=== PATIENT | female | born 1990 | race Caucasian/White ===

== ENCOUNTER 2024-09-06 22:51 | Emergency (ER) | payer OTHER, SELFPAY ==
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
[2024-09-06 22:54] VITALS: BP 125/86; PULSE 73; RESP 18; TEMP 36.7; O2SAT 98; BMI 36.0
--- OUTSIDE RECORDS SUMMARY | 2024-09-06 23:20 | XMS_ITS | Clinical Summary ---
Author Organization [facility] [place] & [facility] lin Address [address] [place] [address] Care Team Providers Care Director Of Materials Name Role Phone No, Pcp ELECTRIC MOTOR FITTER Primary Care Provider Unavailabl e Social History Tobacco Use Types Packs/Day Years Used Date Smoking Tobacco: Never Assessed Comments Unknown Sex and Gender Information Value Date Recorded Sex Assigned at Not on file Legal Sex Female 9:35 AM EST Gender Identity Not on file Sexual Orientation Not on file Plan of Treatment Health Maintenance Due Date Last Done Comments Depression: Screening Annual ly using PHQ-2/9 in Adults 18 yrs or above (or HM Modifier)([facility]) 1989 Hepatitis C Virus Infection in Adolescents and Adults: Screening (or Modifier) ([facility]) 2007 [facility] Screening Reminder: Baylee ruma for all adults ([facility]) 2007 Tobacco Smoking Cessation: i n Adults excluding Women: Behavioral and Pharmacotherapy Interventions ([facility]) 2007 DTaP/Tdap/Td Vaccines ([facility]) (1 - Tdap) 2008 Lipid Screening: Once for Wo men aged 20 to 45 yrs ([facility]) 2009 Cervical Cancer Screenin 1-65 yrs of age (or Modifier) 2010 Cervical Cancer Screening: P ap every 3 yrs pts age 21-65 2010 Cervical Cancer: Pap Screeni ng with Modifier timing ([facility]) 2010 Cervical Cancer: hrHPV alone or with cotesting Pap for Pts 30-65yrs screening every 5yrs ([facility]) 2010 COVID-19 Vaccine Screening: Initial Series and Booster Status ([facility]) (2023-25 season) 2023 Flu Vaccination: Yearly for ages 18mos through 64 years (or Modifier)([facility]) 11/23/2024 Zoster/Shingles Vaccine Seri es Screening: Adults aged 18+ yrs (or HM Modifiers)([facility]) (1 of 2) 2039 Pneumococcal Vaccination Scr eening: Pts 0-19 & 19-49 yrs of age ([facility]) Aged Out No longer eligible based on patient's age to complete this topic Medical Devices Not on file Insurance [facility] Care Teams Director Of Materials Relationship Specialty Start Date End Date No, Pcp, ELECTRIC MOTOR FITTER N/A Do not use PCP - General Family Medicine 06/13/20
--- OUTSIDE RECORDS SUMMARY | 2024-09-06 23:20 | XMS_ITS | Clinical Summary ---
Author Organization [facility] Address [address] [place] [address] Care Team Providers Care Team Sports Sales Associate Name Role Phone Bonnie Deng Primary Care Provider +1- [phone] Allergies No known active allergies Medications No known medications Social History Tobacco Use Types Packs/Day Years Used Date Smoking Tobacco: Never Assessed Comments No Sex and Gender Information Value Date Recorded Sex Assigned at Not on file Legal Sex Female 1:17 AM EDT Gender Identity Not on file Sexual Orientation Not on file Last Filed Vital Signs Vital Sign Reading Time Taken Comments Blood Pressure 115/74 12/27/2009 12:02 PM EDT Pulse 71 12/27/2009 12:02 PM EDT Temperature 36.6 ??C (97.9 ??F) 12/27/2009 12:02 PM E DT Respiratory Rate - - Oxygen Saturation - - Inhaled Oxygen Concentration - - Weight - - Height - - Body Mass Index - - Plan of Treatment Health Maintenance Due Date Last Done Comments Hepatitis C Screening 1989 Pap Smear 2005 DTaP/Tdap/Td (1 - Tdap) 2007 Hep B (1 of 3 - 19+ 3-dose series) 2008 COVID-19 Vaccine (2023-2 5 season) 2023 Influenza (#1) 2023 Zoster (Shingrix) (1 of 2) 2039 HPV Vaccine Aged Out No longer eligi ble based on patient's age to complete this topic Hep A Aged Out No longer eligi ble based on patient's age to complete this topic Hib Aged Out No longer eligi ble based on patient's age to complete this topic Meningococcal ACWY Aged Out No longer eligible based on patient's age to complete this topic Pneumococcal Aged Out No longer eligi ble based on patient's age to complete this topic Insurance FFS [facility] HMO/POS Care Teams Team Sports Sales Associate Relationship Specialty Start Date End Date Bonnie Deng [address] [place] [id number] PCP - General 12/31/09
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
[2024-09-07 00:50] VITALS: BP 125/86; PULSE 73; RESP 18; TEMP 36.6; O2SAT 98
== END 2024-09-07 00:51 | disposition home or self-care (01) ==
PROVIDERS: Emergency Provider Emergency Medicine
DX: S62.307A Unspecified fracture of fifth metacarpal bone, left hand, initial encounter for closed fracture (principal); V49.40XA Driver injured in collision with unspecified motor vehicles in traffic accident, initial encounter; Y93.9 Activity, unspecified; Y92.9 Unspecified place or not applicable; Y99.9 Unspecified external cause status; M79.642 Pain in left hand
CPT/HCPCS: 73130; 99282; 99284

== ENCOUNTER → 2024-09-06 23:00 | Outpatient (BNV) | payer OTHER, SELFPAY | PROVIDERS: Emergency Provider Emergency Medicine; Visit Provider Radiology Diagnostic Radiology | DX: S62.398A Other fracture of other metacarpal bone, initial encounter for closed fracture (principal) | CPT/HCPCS: 73130 ==

== ENCOUNTER 2024-09-10 07:43 | Outpatient (REF) | payer OTHER, SELFPAY ==
--- NOTE | ~2024-09-10 | XR_ITS ---
EXAMINATION: XR HAND, LEFT CLINICAL INFORMATION: M79.642 - Pain in left hand COMPARISON: 09/06/2024. TECHNIQUE: PA, lateral, and oblique views of the left hand. FINDINGS: Acute nondisplaced comminuted distal fifth metacarpal fracture. (Boxer's fracture). No additional acute fractures. There is AVN of the lunate with subchondral collapse and cystic changes. There is a subchondral cyst in the medial articular surface of the radius. Radiocarpal joint narrowing. Mild soft tissue swelling overlying the hyperthenar eminence. Soft tissues otherwise normal. XR/XR hand LT min 3V IMPRESSION: 1. No significant change in the nondisplaced comminuted fifth metacarpal fracture. 2. AVN of the lunate. Electronically signed by: Isidro Goff MD 09/10/2024 01:37 PM EDT
--- OUTSIDE RECORDS SUMMARY | 2024-09-10 07:46 | XMS_ITS | Clinical Summary ---
Author Organization [facility] [employer] & [facility] lin Address [address] [place] [address] Care Team Providers Care Cellular Phone Repairer Name Role Phone No, Pcp SET RIDER Primary Care Provider Unavailabl e Social History [...] Adults 18 yrs or above (or HM Modifier)([facility]) 1989 Hepatitis C Virus Infection in Adolescents and Adults: Screening (or Modifier) ([facility]) 2007 [facility] Screening Reminder: Baylee ruma for all adults ([facility]) 2007 Tobacco Smoking Cessation: i n Adults excluding Women: Behavioral and Pharmacotherapy Interventions ([facility]) 2007 DTaP/Tdap/Td Vaccines ([facility]) (1 - Tdap) 2008 Lipid Screening: Once for Wo men aged 20 to 45 yrs ([facility]) 2009 Cervical Cancer Screenin 1-65 yrs of age (or Modifier) 2010 Cervical Cancer Screening: P ap every 3 yrs pts age 21-65 2010 Cervical Cancer: Pap Screeni ng with Modifier timing ([facility]) 2010 Cervical Cancer: hrHPV alone or with cotesting Pap for Pts 30-65yrs screening every 5yrs ([facility]) 2010 COVID-19 Vaccine Screening: Initial Series and Booster Status ([facility]) (2023-25 season) 2023 Flu Vaccination: Yearly for ages 18mos through 64 years (or Modifier)([facility]) 11/23/2024 Zoster/Shingles Vaccine Seri es Screening: Adults aged 18+ yrs (or HM Modifiers)([facility]) (1 of 2) 2039 Pneumococcal Vaccination Scr eening: Pts 0-19 & 19-49 yrs of age ([facility]) Aged Out No longer eligible based on patient's age to complete this topic Medical Devices Not on file Insurance [facility] Care Teams Cellular Phone Repairer Relationship Specialty Start Date End Date No, Pcp, SET RIDER N/A Do not use PCP - General Family Medicine 06/13/20
--- OUTSIDE RECORDS SUMMARY | 2024-09-10 07:46 | XMS_ITS | Clinical Summary ---
Author Organization [facility] Address [address] [place] [address] Care Team Providers Care Corncob Pipe Supervisor Name Role Phone Bonnie Deng Primary Care Provider +1- [phone] Allergies No known active allergies Medications No [...] age to complete this topic Insurance FFS [facility] HMO/POS Care Teams Corncob Pipe Supervisor Relationship Specialty Start Date End Date Bonnie Deng [address] [place] [phone] PCP - General 12/31/09
== END 2024-09-10 07:44 | disposition home or self-care (01) ==
LOC: HO.HOSX 07:43
DX: M79.642 Pain in left hand (principal); S62.307D Unspecified fracture of fifth metacarpal bone, left hand, subsequent encounter for fracture with routine healing; M87.242 Osteonecrosis due to previous trauma, left hand
CPT/HCPCS: 73130

== ENCOUNTER 2024-09-10 13:14 | Outpatient (AMB) | payer OTHER, SELFPAY ==
--- OUTSIDE RECORDS SUMMARY | 2024-09-10 13:19 | XMS_ITS | Clinical Summary ---
Author Organization [facility] [employer] [facility] lin Address [address] [place] [address] Care Team Providers Care Pin Drafter Name Role Phone No, Pcp ORTHODONTIST Primary Care Provider Unavailabl e Social History [...] Adults 18 yrs or above (or HM Modifier)([facility]) 1989 Hepatitis C Virus Infection in Adolescents and Adults: Screening (or Modifier) ([facility]) 2007 [facility] Screening Reminder: Baylee ruma for all adults ([facility]) 2007 Tobacco Smoking Cessation: i n Adults excluding Women: Behavioral and Pharmacotherapy Interventions ([facility]) 2007 DTaP/Tdap/Td Vaccines ([facility]) (1 - Tdap) 2008 Lipid Screening: Once for Wo men aged 20 to 45 yrs ([facility]) 2009 Cervical Cancer Screenin 1-65 yrs of age (or Modifier) 2010 Cervical Cancer Screening: P ap every 3 yrs pts age 21-65 2010 Cervical Cancer: Pap Screeni ng with Modifier timing ([facility]) 2010 Cervical Cancer: hrHPV alone or with cotesting Pap for Pts 30-65yrs screening every 5yrs ([facility]) 2010 COVID-19 Vaccine Screening: Initial Series and Booster Status ([facility]) (2023-25 season) 2023 Flu Vaccination: Yearly for ages 18mos through 64 years (or Modifier)([facility]) 11/23/2024 Zoster/Shingles Vaccine Seri es Screening: Adults aged 18+ yrs (or HM Modifiers)([facility]) (1 of 2) 2039 Pneumococcal Vaccination Scr eening: Pts 0-19 & 19-49 yrs of age ([facility]) Aged Out No longer eligible based on patient's age to complete this topic Medical Devices Not on file Insurance [facility] Care Teams Pin Drafter Relationship Specialty Start Date End Date No, Pcp, ORTHODONTIST N/A Do not use PCP - General Family Medicine 06/13/20
--- OUTSIDE RECORDS SUMMARY | 2024-09-10 13:19 | XMS_ITS | Clinical Summary ---
Author Organization [facility] Address [address] [place] [address] Care Team Providers Care Merchandise Adjustment Clerk Name Role Phone Bonnie Deng Primary Care Provider +1- [phone] Allergies No known active allergies Medications No [...] age to complete this topic Insurance FFS [facility] HMO/POS Care Teams Merchandise Adjustment Clerk Relationship Specialty Start Date End Date Bonnie Deng [address] [place] [id number] PCP - General 12/31/09
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
[2024-09-10 13:29] VITALS: BMI 36.0
== END 2024-09-10 14:12 | disposition home or self-care (01) ==
LOC: HO.HOS 13:15
DX: S62.307A Unspecified fracture of fifth metacarpal bone, left hand, initial encounter for closed fracture (principal)
CPT/HCPCS: 99203

== ENCOUNTER → 2024-09-10 13:17 | Outpatient (BNV) | payer SELFPAY | PROVIDERS: Visit Provider Radiology Diagnostic Radiology | DX: M87.038 Idiopathic aseptic necrosis of left carpus (principal); S62.307A Unspecified fracture of fifth metacarpal bone, left hand, initial encounter for closed fracture | CPT/HCPCS: 73130 ==

== ENCOUNTER 2024-09-18 09:41 | Outpatient (REF) | payer OTHER, SELFPAY ==
--- NOTE | ~2024-09-18 | XR_ITS ---
EXAMINATION: XR HAND 3 OR MORE VIEWS LEFT HISTORY: M79.642 - Pain in left hand COMPARISON: Comparison is made with the prior examination dated 09/10/2024. FINDINGS: Three views of the left hand are submitted. Osseous mineralization is normal. Again seen is a comminuted fracture of the 5th metacarpal neck. There is slightly greater displacement on the current study. The joint spaces are preserved. 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 A cyst is again noted in the distal radius. The soft tissues are unremarkable. XR/XR hand LT min 3V IMPRESSION: 1. Comminuted fracture of the 5th metacarpal neck with slightly greater displacement than on the prior study. 2. AVN of the lunate. Electronically signed by: Manuel Cifuentes MD 09/18/2024 02:38 PM EDT
--- OUTSIDE RECORDS SUMMARY | 2024-09-19 10:24 | XMS_ITS | Clinical Summary ---
Author Organization [facility] Address [address] [place] [address] Care Team Providers Care Recruiting Consultant Name Role Phone Bonnie Deng Primary Care Provider +1- [phone] Allergies No known active allergies Medications No [...] complete this topic Insurance FFS [facility] HMO/POS Care Teams Recruiting Consultant Relationship Specialty Start Date End Date Bonnie Deng [address] [place] [id number] PCP - General 12/31/09
== END 2024-09-18 09:42 | disposition home or self-care (01) ==
LOC: HO.HOSX 09:41
DX: M79.642 Pain in left hand (principal)
CPT/HCPCS: 73130

== ENCOUNTER 2024-09-18 12:59 | Outpatient (AMB) | payer OTHER, SELFPAY ==
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
--- OUTSIDE RECORDS SUMMARY | 2024-09-18 13:03 | XMS_ITS | Clinical Summary ---
Author Organization [facility] Address [address] [place] [address] Care Team Providers Care Cytopathologist Name Role Phone Bonnie Deng Primary Care Provider +1- [phone] Allergies No known active allergies Medications No [...] age to complete this topic Insurance FFS [facility] HMO/POS Care Teams Cytopathologist Relationship Specialty Start Date End Date Bonnie Deng [address] [place] [id number] PCP - General 12/31/09
[2024-09-18 13:08] VITALS: BMI 36.0
== END 2024-09-18 14:01 | disposition home or self-care (01) ==
LOC: HO.HOS 13:00
DX: S62.307A Unspecified fracture of fifth metacarpal bone, left hand, initial encounter for closed fracture (principal)
CPT/HCPCS: 99214

== ENCOUNTER → 2024-09-18 13:01 | Outpatient (BNV) | payer SELFPAY | PROVIDERS: Visit Provider Radiology Diagnostic Radiology | DX: M79.642 Pain in left hand (principal); S62.337A Displaced fracture of neck of fifth metacarpal bone, left hand, initial encounter for closed fracture | CPT/HCPCS: 73130 ==

== ENCOUNTER 2024-09-20 14:38 | Day surgery (SDC) | payer OTHER, SELFPAY ==
--- NOTE | 2024-09-18 14:55 | HO.ANESPROP2 ---
HPI - Anesthesia Eval Consult details Narrative: 34yo F for Left 5th CRPP vs ORIF Metacarpal PMFSH Active Problems Active Problems: All Active Problems Fracture of fifth metacarpal bone of left hand (Acute ~09/06/24) Past Medical History Medical History (Updated 09/18/24 @ 13:09 by MINNA Vasquez) Fracture of fifth metacarpal bone of left hand (~09/06/24) Social History Social History Current occupational status: employed Current occupation: DSW/right handed Meds Allergies Allergy/AdvReac Type Severity Reaction Status Date / Time No Known Allergies Allergy Verified 09/18/24 13:08 Home Medications ?Medication ?Instructions ?Recorded ?Confirmed ?Last Taken ?Type alprazolam 0.5 mg tablet mg PO 09/10/24 Unknown History cariprazine 4.5 mg capsule 4.5 mg PO DAILY 09/10/24 Unknown History (Vraylar) dextroamphetamine-amphetamine ER 1 cap PO DAILY 09/10/24 Unknown History 30 mg 24hr capsule,extend release trazodone 100 mg tablet 100 mg PO BEDTIME 09/10/24 Unknown History ulipristal 30 mg tablet (Nida) 30 mg PO ONCE 09/10/24 Unknown History Assessment and Plan Assessment Anesthesia Assessment: Chart Reviewed
--- NOTE | ~2024-09-20 | FL_ITS ---
EXAMINATION: FL GUIDANCE ONLY HISTORY: 5th CRPP vs ORIF metacarpal left COMPARISON: Correlation is made with plain films of the left hand dated 09/18/2024. TECHNIQUE: Fluoroscopy time: 47.41 seconds. Cumulative Dose: 1.5034 mGy. DAP: 0.0909 mGym2 Images: 6. FINDINGS: Fluoroscopic spot films of the left hand demonstrate internal fixation of the previously seen fracture of the 5th metacarpal with 2 K wires. FL/FL guidance in OR IMPRESSION: Fluoroscopy during procedure. Please see procedure report for additional information. Electronically signed by: Manuel Cifuentes MD 09/21/2024 07:06 AM EDT
--- NOTE | 2024-09-20 12:41 | P.OP_ITS ---
Operative Note Operative Note Date of Service: 09/20/24 Narrative: Operative Note Narrative: Preop diagnosis: 1. Left 5th Metacarpal shaft fracture Postop diagnosis: Same Procedure: 1. Left 5th Metacarpal fracture closed reduction percutaneous pinning 2. Ulnar nerve block Surgeon: Katerine Dickinson MD Livestock Buyer: Donnie VAZQUEZ Anesthesia: General Anesthesia Findings: Metacarpal fracture Implants: 0.054 K-wires x2 Tourniquet time: None EBL: Minimal Specimen: None Drains: None Complications: None Disposition: Brought to the recovery room in stable condition Plan: Follow-up in 10-14 days for a wound check, postop radiographs and for placement in a short-arm cast or splint Anticipate K-wire removal in 4 weeks based on interval bony healing Educate the patient that full fracture healing anticipated in approximately 8-12 weeks. Indications: The patient is 34 years old with a left 5th metacarpal shaft fracture with displacement . The risks and benefits of operative treatment, including but not limited to risk of damage to blood vessels, nerves, tendons, infection, recurrence, delayed or nonunion of fracture, persistent pain or numbness, incomplete resolution of preoperative symptoms, or need for further surgery were discussed with the patient and they wished to proceed with surgery. Procedure: Once consent was obtained patient was brought back to the operating suite and placed in the operating table in a supine position. . Perioperative antibiotics and general anesthesia was administered by the anesthesia team. A tourniquet was applied to the proximal aspect of the left upper extremity and the limb was prepped and draped in a standard surgical fashion. Tourniquet was not inflated during the case. The FluoroScan was used during the case to assist with our fracture reduction and placement of all implants. A closed reduction was performed on the patient's left 5th metacarpal shaft fracture. I placed a single 0.054 K-wire retrograde through the head of the left 5th metacarpal extending proximally across the fracture site to the base of the metacarpal. A 2nd 0.054 K-wire was placed transversely through the neck of the 5th metacarpal extending into the head and neck of the 4th metacarpal. Fracture alignment was assessed for both angular and rotational malalignment. Once satisfied with our fracture reduction and implant placement, the K-wires were bent and cut short and pin caps applied. Final fluoroscopic images were then obtained. The wounds were copiously irrigated with normal saline. An ulnar nerve block was then performed by infiltrating about the ulnar nerve at the wrist with some 1% lidocaine with epinephrine for postop pain control. A Sterile dressing and short volar splint was applied. The patient appears to have tolerated the procedure well and with no complications. All digits were well vascularized at the conclusion of the case.
[2024-09-20 14:49] VITALS: BP 117/78; PULSE 76; RESP 16; TEMP 37; O2SAT 96; BMI 37.6
[2024-09-20 14:56] LABS: UPreg QC Valid YES; Urine Pregnancy NEGATIVE (NEGATIVE)
[2024-09-20] MEDS: Lactated Ringers 1,000 ML 100 ML IVCONT (15:17)
--- NOTE | 2024-09-20 15:36 | PC.NURSE ---
Patient in preop. Dr. Bob and this nurse at bedside. Patient found eating a mint. Mint immediately removed from mouth. Patient states I did not know I couldn't have a mint . This nurse verified with patient that she has had no other candy/gum/mints all day, NPO since midnight. No new orders at this time. No delay in surgery per Dr. Bob.
--- NOTE | 2024-09-20 16:51 | MHC.SHP ---
Pre-Procedural Eval Section A - 24 Hr Update-Section A only Date of Service: 09/20/24 The patient is an INPATIENT: No Changes since office visit: No Cold of Flu in the past 2 weeks, No New Medical Problems, No Changes in Medication and No Patient answered all questions The patient has been examined within 24 hours of the surgical procedure. The History & Physical has been completed within 30 days and I have reviewed it.: Yes Section B - Complete if H&P > 30 days Chief Complaint: Displaced fracture of shaft of fifth metacarpal Allergies: Allergies Allergy/AdvReac Type Severity Reaction Status Date / Time No Known Allergies Allergy Verified 09/20/24 14:46 Plan I have reviewed the history and physical and performed a pertinent physical examination on my patient. No changes have occurred unless specified. Time Spent With Patient Time: Total time managing care of this patient today ____ minutes.
[2024-09-20] MEDS: ceFAZolin Sodium/Dextrose,Iso 2 GM/50 ML PIGGYBACK IV (17:55)
[2024-09-20 18:50] VITALS: BP 129/77; PULSE 89; RESP 16; TEMP 37.4; O2SAT 99
[2024-09-20 18:55] VITALS: BP 137/82; PULSE 94; RESP 16; O2SAT 96
[2024-09-20 19:00] VITALS: BP 107/64; PULSE 81; RESP 16; O2SAT 96
--- NOTE | 2024-09-20 19:01 | HO.POSTANES ---
Post Anesthesia Evaluation Post Anesthesia Evaluation Date of Service: 09/20/24 Vital Signs: Vital Signs Temp Pulse Resp BP Pulse Ox O2 Del Method 09/20/24 18:55 94 16 137/82 96 Room Air 09/20/24 18:50 99.3 F 89 16 129/77 99 Room Air 09/20/24 14:49 98.6 F 76 16 117/78 96 Room Air Anesthesia: General LMA Mental Status: Awake Pain Control: Satisfactory Nausea/Vomiting: None Hydration: Adequate Anesthesia-Related Issues: No Anes. Related Issues
[2024-09-20 19:05] VITALS: BP 121/87; PULSE 89; RESP 16; O2SAT 95
[2024-09-20 19:20] VITALS: BP 109/63; PULSE 84; RESP 18; TEMP 36.7; O2SAT 97
== END 2024-09-20 19:28 | disposition home or self-care (01) ==
PROVIDERS: Nurse Practitioner; Visit Provider Orthopaedic Surgery
PROC: (CPT 26608; principal; 2024-09-20 16:20)
DX: S62.327A Displaced fracture of shaft of fifth metacarpal bone, left hand, initial encounter for closed fracture (principal); V49.9XXA Car occupant (driver) (passenger) injured in unspecified traffic accident, initial encounter; Y93.9 Activity, unspecified; Y92.9 Unspecified place or not applicable; Y99.9 Unspecified external cause status; Z79.899 Other long term (current) drug therapy
CPT/HCPCS: 26608; 81025; J0131; J0690; J1100; J1596; J2003; J2004; J2250; J2405; J2704; J3010

== ENCOUNTER → 2024-09-20 14:38 | Outpatient (BNV) | payer OTHER, SELFPAY | PROVIDERS: Visit Provider Orthopaedic Surgery | DX: S62.327A Displaced fracture of shaft of fifth metacarpal bone, left hand, initial encounter for closed fracture (principal) | CPT/HCPCS: 26608 ==

== ENCOUNTER 2024-10-03 14:46 | Outpatient (AMB) | payer OTHER, SELFPAY ==
--- NOTE | 2024-10-03 15:01 | MHC.OFFVIS ---
Intake Visit Reasons: PO LT 5th CRPP 09/20/24 AR Intake Note: Renée is a 34 year old right hand dominant female who presents today for a post operative visit status post left 5th metacarpal fracture CRPP DOS: 09/20/[address] Katerine Dickinson. Patient mentions having no pain at the moment. Pins look clean, dry and intact. Allergies No Known Allergies Allergy (Verified 10/03/24 15:11) HPI HPI PO LT 5th CRPP 09/20/24 AR: Details: Renée is a 34 year old right hand dominant female who presents today for a post operative visit status post left 5th metacarpal fracture CRPP DOS: 09/20/[address] Katerine Dickinson. Patient mentions having no pain at the moment. Pins look clean, dry and intact. Patient reports that she has kept the splint clean, dry, intact since surgery. No other acute complaints or concerns at this time. Denies numbness or tingling. [facility] Medical History (Updated 09/18/24 @ 13:09 by MINNA Vasquez) Fracture of fifth metacarpal bone of left hand (~09/06/24) Surgical History (Updated 09/20/24 @ 15:35 by Day Coyne RN) H/O adenoidectomy Hx of tonsillectomy H/O total adrenalectomy Social History Are you a primary administrator health care facility to a significant other at home: No Do you presently have visiting nurse or other home services: No Patient Tobacco Use Status: Former Tobacco user Tobacco use type: Cigarette Years Smoked: 10 Current occupational status: employed Current occupation: DSW/right handed Review of Systems Const All systems reviewed & are unremarkable except as noted in HPI and below Physical Exam Extrem Other: Patient is alert, oriented, and in no acute distress. Neuro: Normal sensation of the tips of all digits of the left hand at this time Vascular: Cap refill brisk Pain: No tenderness to palpation about pin sites of left 5th metacarpal No pain with range of motion of other digits of the left hand ROM: Patient is able to make a closed fist and extend thumb, index, middle fingers of the left hand fully and without difficulty Skin: No lacerations or abrasions. General: There is some slight redness noted about the ulnar pin site No redness around incision site of left 5th MCP joint Psych: Appears grossly normal Affect normal Attitude cooperative Results Reviewed Results Reviewed: X-rays obtained in the office today and independently reviewed by me, Donnie Beltran PA-C, demonstrate surgically reduced fracture of the left 5th metacarpal with all orthopedic hardware in place and in satisfactory clinical alignment. Assessment & Plan Assessment & Plan (1) Fracture of fifth metacarpal bone of left hand: Onset Date: ~09/06/24 Code(s): S62.307A - Unspecified fracture of fifth metacarpal bone, left hand, initial encounter for closed fracture Category: Medical Plan 1. Status post CRPP of left 5th metacarpal DOS 09/20/2024 Patient appears to be recovering well postoperatively Patient is educated about the typical recovery course At this time, out of an abundance of caution due to the slight redness around 1 of the pin sites, patient is prescribed a one-week course of Augmentin Patient is also placed into a ulnar gutter cast for better protection of pin sites Patient is educated on proper cast care and precautions Follow-up in 1 week for wound check, we will replace and cast at that time, sooner with any acute concerns. Orders: Orders XR hand LT min 3V 10/03/24 M79.642 - Pain in left hand Medications: New amoxicillin-pot clavulanate 875-125 mg 1 tab PO BID 14 tabs 0RF 7 days Coding Level of Care Code Global (23064) Diagnoses Fracture of fifth metacarpal bone of left hand S62.307A
--- OUTSIDE RECORDS SUMMARY | 2024-10-03 16:59 | XMS_ITS | Clinical Summary ---
Author Organization [facility] Address [address] [place] [address] Care Team Providers Care Director Global Medical Affairs Name Role Phone Bonnie Deng Primary Care Provider +1- [phone] Allergies No known active allergies Medications No [...] COVID-19 Vaccine (2023-2 5 season) 2023 Influenza (Season Ended) 2024 Zoster (Shingrix) (1 of 2) 2039 HPV [...] age to complete this topic Insurance FFS [facility] HMO/POS Care Teams Director Global Medical Affairs Relationship Specialty Start Date End Date Bonnie Deng [address] [place] [id number] PCP - General 12/31/09
== END 2024-10-03 16:46 | disposition home or self-care (01) ==
LOC: HO.HOS 14:47
DX: S62.307A Unspecified fracture of fifth metacarpal bone, left hand, initial encounter for closed fracture (principal)
CPT/HCPCS: 99024

== ENCOUNTER 2024-10-03 14:46 | Outpatient (REF) | payer OTHER, SELFPAY ==
--- NOTE | ~2024-10-03 | XR_ITS ---
EXAMINATION: XR HAND, LEFT CLINICAL INFORMATION: M79.642 - Pain in left hand, follow-up fixed fracture COMPARISON: None available. TECHNIQUE: PA, lateral, and oblique views of the left hand. FINDINGS: K wires traverse an oblique fracture through the distal metadiaphysis of the fifth metacarpal. On the AP view, there is a 1-2 mm step-off of the cortex across the fracture. There is increasing osteopenia along the fracture line. Again seen is mild to moderate collapse and fragmentation of the lunate. Again seen is degenerative cystic change in the radius adjacent to the sigmoid notch. XR/XR hand LT min 3V IMPRESSION: Post fixation of fifth metacarpal fracture with K wires. No evidence of early healing. 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 Electronically signed by: Kevin Dean MD 10/03/2024 06:34 PM EDT
== END 2024-10-03 14:47 | disposition home or self-care (01) ==
LOC: HO.HOSX 14:46
DX: M79.642 Pain in left hand (principal)
CPT/HCPCS: 73130

== ENCOUNTER → 2024-10-03 15:18 | Outpatient (BNV) | payer OTHER, SELFPAY | PROVIDERS: Visit Provider Radiology Diagnostic Radiology | DX: S62.327G Displaced fracture of shaft of fifth metacarpal bone, left hand, subsequent encounter for fracture with delayed healing (principal); M85.89 Other specified disorders of bone density and structure, multiple sites; Z96.698 Presence of other orthopedic joint implants; M48.061 Spinal stenosis, lumbar region without neurogenic claudication | CPT/HCPCS: 73130 ==

== ENCOUNTER 2024-10-09 08:08 | Outpatient (AMB) | payer OTHER, SELFPAY ==
--- NOTE | 2024-10-09 08:16 | MHC.OFFVIS ---
Intake Visit Reasons: PO LT 5th CRPP 09/20/24 AA Intake Note: Renée is a 34 year old right hand dominant female who presents today for a post operative appointment about 3 weeks s/p Left 5th MC CRPP 09/20/24. Cast removed today in clinic. Patient reports that she has continued abx, she did miss a dose but has continued to take as directed. has not finished the course yet. She has some reddness and white located surrounding the pin in the side of the 5th digit. She has no pain, and is doing well overall. no complaints at this time. Allergies No Known Allergies Allergy (Verified 10/03/24 15:11) HPI HPI PO LT 5th CRPP 09/20/24 AA: Details: Renée is a 34 year old right hand dominant female who presents today for a post operative appointment about 3 weeks s/p Left 5th MC CRPP 09/20/24. Cast removed today in clinic. Patient reports that she has continued abx, she did miss a dose but has continued to take as directed. has not finished the course yet. She has some reddness and white located surrounding the pin in the side of the 5th digit. She has no pain, and is doing well overall. no complaints at this time. [facility] Medical History Fracture of fifth metacarpal bone of left hand (~09/06/24) Surgical History H/O adenoidectomy Hx of tonsillectomy H/O total adrenalectomy Social History Are you a primary post anesthesia care unit nurse to a significant other at home: No Do you presently have visiting nurse or other home services: No Patient Tobacco Use Status: Former Tobacco user Tobacco use type: Cigarette Years Smoked: 10 Current occupational status: employed Current occupation: DSW/right handed Review of Systems Const All systems reviewed & are unremarkable except as noted in HPI and below Physical Exam Extrem Other: Patient is alert, oriented, and in no acute distress. Neuro: Normal sensation of the tips of all digits of the left hand at this time Vascular: Cap refill brisk Pain: No tenderness to palpation about pin sites of left 5th metacarpal No pain with range of motion of other digits of the left hand ROM: Patient is able to make a closed fist and extend thumb, index, middle fingers of the left hand fully and without difficulty Skin: No lacerations or abrasions. General: There is some slight redness noted about the ulnar pin site, has darkened and appears to be more consistent with new skin growth then infection at this time No redness around incision site of left 5th MCP joint Psych: Appears grossly normal Affect normal Attitude cooperative Assessment & Plan Assessment & Plan (1) Fracture of fifth metacarpal bone of left hand: Onset Date: ~09/06/24 Code(s): S62.307A - Unspecified fracture of fifth metacarpal bone, left hand, initial encounter for closed fracture Category: Medical Plan 1. Status post CRPP of left 5th metacarpal DOS 09/20/2024 Patient appears to be recovering well postoperatively Patient is educated about the typical recovery course At this time, out of an abundance of caution due to the slight redness around 1 of the pin sites, patient is prescribed a one-week course of Augmentin Patient is also placed into a ulnar gutter cast for better protection of pin sites Patient is educated on proper cast care and precautions Follow-up in 1 week for wound check, anticipate cast and pin removal t at that time, sooner with any acute concerns. Medications: Refilled amoxicillin-pot clavulanate 875-125 mg 1 tab PO BID 7 days 14 tabs 0RF Coding Level of Care Code Global (45778) Diagnoses Fracture of fifth metacarpal bone of left hand S62.307A
== END 2024-10-09 08:39 | disposition home or self-care (01) ==
LOC: HO.HOS 08:08
DX: S62.307A Unspecified fracture of fifth metacarpal bone, left hand, initial encounter for closed fracture (principal)
CPT/HCPCS: 99024

== ENCOUNTER 2024-10-16 08:41 | Outpatient (REF) | payer OTHER, SELFPAY ==
--- NOTE | ~2024-10-16 | XR_ITS ---
CLINICAL HISTORY: M79.642 - Pain in left hand --- Additional Notes or Special Instructions: Attn fifth 3 view left hand Comparison: None provided Findings: Postsurgical changes related to nail fixation of the 5th metacarpal fracture which maintains gross anatomic alignment. No significant arthritic change. No erosions. No radiopaque foreign body. IMPRESSION: Postsurgical changes related to nail fixation of the 5th metacarpal fracture which maintains gross anatomic alignment. This document has been electronically signed by: Valerie Davison MD on 10/16/2024 23:02:50
--- OUTSIDE RECORDS SUMMARY | 2024-10-17 09:06 | XMS_ITS | Clinical Summary ---
Author Organization [facility] Address [address] [place] [address] Care Team Providers Care Loft Worker Pile Driving Name Role Phone Bonnie Deng Primary Care Provider +1- [phone] Allergies No known active allergies Medications No [...] age to complete this topic Insurance FFS [facility] HMO/POS Care Teams Loft Worker Pile Driving Relationship Specialty Start Date End Date Bonnie Deng [address] [place] [id number] PCP - General 12/31/09
== END 2024-10-16 08:42 | disposition home or self-care (01) ==
LOC: HO.HOSX 08:41
DX: M79.642 Pain in left hand (principal)
CPT/HCPCS: 73130

== ENCOUNTER 2024-10-16 10:18 | Outpatient (AMB) | payer OTHER, SELFPAY ==
--- NOTE | 2024-10-16 10:36 | MHC.OFFVIS ---
Intake Visit Reasons: PO LT 5th CRPP 09/20/24 AA-w/xrays Intake Note: Renée is a 34 year old right hand dominant female who presents today for a post operative visit and wound check status post left 5th metacarpal fracture CRPP DOS: 09/20/[address] Katerine Dickinson. Patient reports she is doing well, states no complaints of pain or discomfort. Allergies No Known Allergies Allergy (Verified 10/16/24 10:36) HPI HPI PO LT 5th CRPP 09/20/24 AA-w/xrays: Details: Renée is a 34 year old right hand dominant female who presents today for a post operative appointment about 3 weeks s/p Left 5th MC CRPP 09/20/24. Cast removed today in clinic. Patient reports that she has continued abx. She has some reddness and white located surrounding the pin in the side of the 5th digit. She has no pain, and is doing well overall. no complaints at this time. [facility] Medical History Fracture of fifth metacarpal bone of left hand (~09/06/24) Surgical History H/O adenoidectomy Hx of tonsillectomy H/O total adrenalectomy Social History Are you a primary skin care technician to a significant other at home: No Do you presently have visiting nurse or other home services: No Patient Tobacco Use Status: Former Tobacco user Tobacco use type: Cigarette Years Smoked: 10 Current occupational status: employed Current occupation: DSW/right handed Review of Systems Const All systems reviewed & are unremarkable except as noted in HPI and below Physical Exam Extrem Other: Patient is alert, oriented, and in no acute distress. Neuro: Normal sensation of the tips of all digits of the left hand at this time Vascular: Cap refill brisk Pain: No tenderness to palpation about pin sites of left 5th metacarpal No pain with range of motion of other digits of the left hand ROM: Patient is able to make a closed fist and extend thumb, index, middle fingers of the left hand fully and without difficulty Skin: No lacerations or abrasions. General: There is some slight redness noted about the ulnar pin site, has darkened and appears to be more consistent with new skin growth then infection at this time No redness around incision site of left 5th MCP joint Psych: Appears grossly normal Affect normal Attitude cooperative Results Reviewed Results Reviewed: X-rays obtained in the office today and independently reviewed by me, Donnie Beltran PA-C, demonstrate surgically reduced fracture of the left 5th metacarpal with all orthopedic hardware in place and in satisfactory clinical alignment with evidence of early interval bony healing. Assessment & Plan Assessment & Plan (1) Fracture of fifth metacarpal bone of left hand: Onset Date: ~09/06/24 Code(s): S62.307A - Unspecified fracture of fifth metacarpal bone, left hand, initial encounter for closed fracture Category: Medical Plan 1. Status post CRPP of left 5th metacarpal DOS 09/20/2024 Patient appears to be recovering well postoperatively Patient is educated about the typical recovery course Pins pulled in the office today without issue Patient is educated on proper pin site care and precautions Patient is provided with a Velcro wrist splint to wear with daytime activities and olu tape to wear while awake OT order to begin gentle range of motion of the left hand, no strengthening Follow-up in 1 month for reassessment, sooner with any acute concerns. Orders: Orders XR hand LT min 3V Today M79.642 - Pain in left hand OT Evaluation and Treatment Today S62.307A - Unspecified fracture of fifth metacarpal bone, left hand, initial encounter for closed fracture Coding Level of Care Code Global (39825) Diagnoses Fracture of fifth metacarpal bone of left hand S62.307A
--- OUTSIDE RECORDS SUMMARY | 2024-10-16 11:26 | XMS_ITS | Clinical Summary ---
Author Organization [facility] Address [address] [place] [address] Care Team Providers Care Tool Analyst Name Role Phone Bonnie Deng Primary Care Provider +1- [phone] Allergies No known active allergies Medications No [...] 71 12/27/2009 12:02 PM EDT Temperature 36.6 C (97.9 F) 12/27/2009 12:02 PM EDT Respiratory Rate - - Oxygen Saturation - [...] to complete this topic Insurance FFS [facility] HMO/POS Care Teams Tool Analyst Relationship Specialty Start Date End Date Bonnie Deng [address] [place] [id number] PCP - General 12/31/09
== END 2024-10-16 11:37 | disposition home or self-care (01) ==
LOC: HO.HOS 10:19
DX: S62.307A Unspecified fracture of fifth metacarpal bone, left hand, initial encounter for closed fracture (principal)
CPT/HCPCS: 99024

== ENCOUNTER → 2024-10-16 10:22 | Outpatient (BNV) | payer OTHER, SELFPAY | PROVIDERS: Visit Provider Student in an Organized Health Care Education/Training Program | DX: S62.307D Unspecified fracture of fifth metacarpal bone, left hand, subsequent encounter for fracture with routine healing (principal) | CPT/HCPCS: 73130 ==

== ENCOUNTER 2024-11-14 13:17 | Outpatient (REF) | payer OTHER, SELFPAY ==
--- NOTE | ~2024-11-14 | XR_ITS ---
EXAMINATION: XR HAND 3 OR MORE VIEWS LEFT HISTORY: M79.642 - Pain in left hand COMPARISON: Comparison is made with the prior examination dated 10/16/2024. FINDINGS: Three views of the left hand are submitted. There is a cyst in the distal radius. The previously seen K wire is at the site of an oblique fracture of the 5th metacarpal have been removed. The fracture line remains visible. Again seen is collapse and fragmentation of the lunate consistent with old avascular necrosis. The soft tissues are unremarkable. XR/XR hand LT min 3V IMPRESSION: 1. Removal of K wires at the site of the fracture of the 5th metacarpal. The fracture line remains visible. 2. Chronic AVN of the lunate. Electronically signed by: Manuel Cifuentes MD 11/14/2024 03:04 PM EDT
--- OUTSIDE RECORDS SUMMARY | 2024-11-14 13:45 | XMS_ITS | Clinical Summary ---
Author Organization [facility] Address [address] [place] [address] Care Team Providers Care Investor Relations Manager Name Role Phone Bonnie Deng Primary Care Provider +1- [phone] Allergies No known active allergies Medications No [...] - 19+ 3-dose series) 2008 COVID-19 Vaccine ( - 2023-2 5 season) 2023 Influenza (#1) 2024 Zoster (Shingrix) (1 of 2) 2039 [...] age to complete this topic Insurance [facility]FS [facility] H[facility] Care Teams Investor Relations Manager Relationship Specialty Start Date End Date Bonnie Deng [address] [place] [id number] PCP - General 12/31/09
--- OUTSIDE RECORDS SUMMARY | 2024-11-14 13:45 | XMS_ITS | Clinical Summary ---
Author Organization [facility] [employer] [facility] Address [address] [place] [address] Care Team Providers Care Welding Machine Operator Helper Gas Name Role Phone No, Pcp [employer]CHOOL CAFET[employer]IA HEAD COOK Primary Care Provider Unavailabl e Social History [...] Adults 18 yrs or above (or HM Modifier)([facility]) 2007 Hepatitis C Virus Infection in Adolescents and Adults: Screening (or Modifier) ([facility]) 2007 [facility] Screening Reminder: Baylee hendrix for all adults ([facility]) 2007 Tobacco Smoking Cessation: i n Adults excluding Women: Behavioral and Pharmacotherapy Interventions ([facility]) 2007 DTaP/Tdap/Td Vaccines ([facility]) (1 - Tdap) 2008 Cervical Cancer Screenin 1-65 yrs of age (or Modifier) 2010 Cervical Cancer Screening: P ap every 3 yrs pts age 21-65 2010 Cervical Cancer: Pap Screeni ng with Modifier timing ([facility]) 2010 Cervical Cancer: hrHPV alone or with cotesting Pap for Pts 30-65yrs screening every 5yrs ([facility]) 2010 COVID-19 Vaccine Screening: Initial Series and Booster Status ([facility]) ( - 2023- season) 2023 Flu Vaccination: Yearly for ages 18mos through 64 years (or Modifier)([facility]) 11/23/2024 Zoster/Shingles Vaccine Seri es Screening: Adults aged 18+ yrs (or HM Modifiers)([facility]) (1 of 2) 2039 Pneumococcal Vaccination Scr eening: Pts 0-19 & 19-49 yrs of age ([facility]) Aged Out No longer eligible based on patient's age to complete this topic Medical Devices Not on file Insurance [facility] Care Teams Welding Machine Operator Helper Gas Relationship Specialty Start Date End Date No, Pcp, SCHOOL CAFETERIA HEAD COOK N/A Do not use PCP - General Family Medicine 06/13/20
--- OUTSIDE RECORDS SUMMARY | 2024-11-14 13:45 | XMS_ITS | Patient Health Record ---
Author Organization [facility] Address [address] [place] [address] Care Team Providers Care Health Nurse Name Role Phone Bonnie Deng Primary Care Provider Debora Ferreira MD,MPH, Anthony Unavailable Reason For Referral No Information Medications Medication SIG (Take, Route, Frequency, Duration) Notes Start Date End Date Status CONTROL DIRECTED *Please review f or potential replacement for e-prescription and drug interaction check* Active clonazePAM 1 MG 1 tab(s) orally TID for 30 day(s) Active SEROquel 25 MG 1 tab(s) orally TID for 30 day(s) Active Lexapro 10 MG 1 tab(s) orally once a day for 30 day(s) Active Plan Of Treatment No Information Insurance Providers Payer Name Payer Address Payer Phone Subscriber Number Group Number Insured Name Patient Relationship to Insured Coverage Start Date Coverage End Date [place] [address] LUDIVINA Constantino [id number] Td Ordaz Child - Insured has Financial Responsibility Medical (General) History Medical History History ICD Code depression anxiety adrenal gland tumor age 10 Surgical History Surgery Date(Month/Year) Adrenal gland adenoidectomy M&T tonsillectomy
== END 2024-11-14 13:18 | disposition home or self-care (01) ==
LOC: HO.HOSX 13:17
DX: S62.307D Unspecified fracture of fifth metacarpal bone, left hand, subsequent encounter for fracture with routine healing (principal); M79.642 Pain in left hand; X58.XXXD Exposure to other specified factors, subsequent encounter
CPT/HCPCS: 73130

== ENCOUNTER 2024-11-14 14:41 | Outpatient (AMB) | payer OTHER, SELFPAY ==
[2024-11-14 14:43] VITALS: BMI 37.4
--- NOTE | 2024-11-14 14:43 | MHC.OFFVIS ---
Vital Signs 11/14/24 14:43 Height 5 ft 4 in Weight 218 lb BMI 37.4 Intake Visit Reasons: PO - LT 5th CRPP 09/20/24 AA-w/xrays Intake Note: Renée is a 34 year old right hand dominant female who presents today for a post operative visit and wound check status post left 5th metacarpal fracture CRPP DOS: 09/20/24. At her last visit she was transitioned into a velcro wrist brace and olu tape to wear during daytime activities. Patient reports she is doing well, however she does mention some soreness. She has been doing at home exercises with the olu tape. She would like to discuss referral to physical therapy to help improve ROM such as lifting motions. Allergies No Known Allergies Allergy (Verified 11/14/24 14:53) HPI HPI PO - LT 5th CRPP 09/20/24 AA-w/xrays: Details: Renée is a 34 year old right hand dominant female who presents today for a post operative visit and wound check status post left 5th metacarpal fracture CRPP DOS: 09/20/24. At her last visit she was transitioned into a velcro wrist brace and olu tape to wear during daytime activities. Patient reports she is doing well, however she does mention some soreness. She has been doing at home exercises with the olu tape. She would like to discuss referral to physical therapy to help improve ROM such as lifting motions. [facility] Medical History Fracture of fifth metacarpal bone of left hand (~09/06/24) Surgical History H/O adenoidectomy Hx of tonsillectomy H/O total adrenalectomy Social History Are you a primary day care center director to a significant other at home: No Do you presently have visiting nurse or other home services: No Patient Tobacco Use Status: Former Tobacco user Tobacco use type: Cigarette Years Smoked: 10 Current occupational status: employed Current occupation: DSW/right handed Review of Systems Const All systems reviewed & are unremarkable except as noted in HPI and below Physical Exam Vital Signs: BMI result Body Mass Index 37.4 Extrem Other: Patient is alert, oriented, and in no acute distress. Neuro: Normal sensation of the tips of all digits of the left hand at this time Vascular: Cap refill brisk Pain: No tenderness to palpation about pin sites of left 5th metacarpal No pain with range of motion of other digits of the left hand ROM: Patient is able to make a closed fist and extend all digits of the left hand fully Skin: No lacerations or abrasions. General: No erythema, ecchymosis, evidence of infection Psych: Appears grossly normal Affect normal Attitude cooperative Results Reviewed Results Reviewed: X-rays obtained in the office today and independently reviewed by me, Donnie Beltran PA-C, demonstrate fracture of the left 5th metacarpal in satisfactory clinical alignment and with evidence of interval bony healing. Assessment & Plan Assessment & Plan (1) Fracture of fifth metacarpal bone of left hand: Onset Date: ~09/06/24 Code(s): S62.307A - Unspecified fracture of fifth metacarpal bone, left hand, initial encounter for closed fracture Category: Medical Plan 1. Status post CRPP of left 5th metacarpal DOS 09/20/2024 Patient appears to be recovering well postoperatively Patient is educated about the typical recovery course Olu tape to be worn with high-risk daytime activities 3-4 lb weight limit in the left hand OT order to begin gentle range of motion of the left hand, no strengthening Follow-up in 1 month for reassessment, sooner with any acute concerns. Orders: Orders XR hand LT min 3V 11/14/24 M79.642 - Pain in left hand Coding Level of Care Code Global (58160) Diagnoses Fracture of fifth metacarpal bone of left hand S62.307A
== END 2024-11-14 15:05 | disposition home or self-care (01) ==
LOC: HO.HOS 14:42
DX: S62.307A Unspecified fracture of fifth metacarpal bone, left hand, initial encounter for closed fracture (principal)
CPT/HCPCS: 99024

== ENCOUNTER → 2024-11-14 14:42 | Outpatient (BNV) | payer OTHER, SELFPAY | PROVIDERS: Visit Provider Radiology Diagnostic Radiology | DX: M93.1 Kienbock's disease of adults (principal) | CPT/HCPCS: 73130 ==

== ENCOUNTER 2024-12-11 13:40 | Outpatient (AMB) | payer OTHER, SELFPAY ==
[2024-12-11 13:44] VITALS: BMI 37.4
--- NOTE | 2024-12-11 13:44 | A.OFFVIS_ITS ---
Vital Signs 12/11/24 13:44 Height 5 ft 4 in Weight 218 lb BMI 37.4 Intake Visit Reasons: PO - LT 5th CRPP 09/20/24 AA-w/xrays Intake Note: Renée is a 34 year old right hand dominant female who presents today for post- operatively status post left 5th metacarpal CRPP, DOS: 09/20/24, by Dr. Dickinson. At her last visit she was placed on a 3 to 4 pound weight restriction. She was advised to continue olu taping and going to occupational therapy for gentle ROM. Patient reports today she has been wearing her Velcro wrist brace everyday, taking it off only at bedtime. She states she did not go to occupational therapy because she was under the impression she did not needed. Denies any pain, numbness, tingling, finger locking. Allergies No Known Allergies Allergy (Verified 12/11/24 13:44) HPI HPI PO - LT 5th CRPP 09/20/24 AA-w/xrays: Details: Renée is a 34 year old right hand dominant female who presents today for post- operatively status post left 5th metacarpal CRPP, DOS: 09/20/24, by Dr. Dickinson. At her last visit she was placed on a 3 to 4 pound weight restriction. She was advised to continue olu taping and going to occupational therapy for gentle ROM. Patient reports today she has been wearing her Velcro wrist brace everyday, taking it off only at bedtime. She states she did not go to occupational therapy because she was under the impression she did not needed. Denies any pain, numbness, tingling, finger locking. [facility] Medical History Fracture of fifth metacarpal bone of left hand (~09/06/24) Surgical History H/O adenoidectomy Hx of tonsillectomy H/O total adrenalectomy Social History Are you a primary medicare sales executive to a significant other at home: No Do you presently have visiting nurse or other home services: No Patient Tobacco Use Status: Former Tobacco user Tobacco use type: Cigarette Years Smoked: 10 Current occupational status: employed Current occupation: DSW/right handed Review of Systems Const All systems reviewed & are unremarkable except as noted in HPI and below Physical Exam Vital Signs: BMI result Body Mass Index 37.4 Extrem Other: Patient is alert, oriented, and in no acute distress. Neuro: Normal sensation of the tips of all digits of the left hand at this time Vascular: Cap refill brisk Pain: No tenderness to palpation about pin sites of left 5th metacarpal No pain with range of motion of digits of the left hand ROM: Patient is able to make a closed fist and extend all digits of the left hand fully Skin: No lacerations or abrasions. General: No erythema, ecchymosis, evidence of infection Psych: Appears grossly normal Affect normal Attitude cooperative Assessment & Plan Assessment & Plan (1) Fracture of fifth metacarpal bone of left hand: Onset Date: ~09/06/24 Code(s): S62.307A - Unspecified fracture of fifth metacarpal bone, left hand, initial encounter for closed fracture Category: Medical Plan 1. Status post CRPP of left 5th metacarpal DOS 09/20/2024 Patient appears to be recovering well postoperatively Patient is educated about the typical recovery course Olu tape to be worn with high-risk daytime activities May increase to full normal lifting over the next 3-4 weeks Patient appears to have recovered very well, no acute follow-up as indicated Patient understands this and is amenable to this plan Follow-up as needed with any acute concerns. Coding Level of Care Code Global (81197) Diagnoses Fracture of fifth metacarpal bone of left hand S62.307A
--- OUTSIDE RECORDS SUMMARY | 2024-12-11 14:56 | XMS_ITS | Clinical Summary ---
Author Organization [facility] [employer] & [facility] lin Address [address] [place] [address] Care Team Providers Care Atlassian Administrator Name Role Phone No, Pcp PERFORATOR OPERATOR OIL WELL Primary Care Provider Unavailabl e Social History [...] Adults 18 yrs or above (or HM Modifier)([facility]) 2007 Hepatitis C Virus Infection in Adolescents and Adults: Screening (or Modifier) ([facility]) 2007 [facility] Screening Reminder: Baylee hendrix for all adults ([facility]) 2007 Tobacco Smoking Cessation: i n Adults excluding Women: Behavioral and Pharmacotherapy Interventions ([facility]) 2007 DTaP/Tdap/Td Vaccines ([facility]) (1 - Tdap) 2008 Cervical Cancer Screenin 1-65 yrs of age (or Modifier) 2010 Cervical Cancer Screening: P ap every 3 yrs pts age 21-65 2010 Cervical Cancer: Pap Screeni ng with Modifier timing ([facility]) 2010 Cervical Cancer: hrHPV alone or with cotesting Pap for Pts 30-65yrs screening every 5yrs ([facility]) 2010 COVID-19 Vaccine Screening: Initial Series and Booster Status ([facility]) ( - 2023- season) 2023 Flu Vaccination: Yearly for ages 18mos through 64 years (or Modifier)([facility]) 11/23/2024 Zoster/Shingles Vaccine Seri es Screening: Adults aged 18+ yrs (or HM Modifiers)([facility]) (1 of 2) 2039 Pneumococcal Vaccination Scr eening: Pts 0-19 & 19-49 yrs of age ([facility]) Aged Out No longer eligible based on patient's age to complete this topic Medical Devices Not on file Insurance [facility] Care Teams Atlassian Administrator Relationship Specialty Start Date End Date No, Pcp, PERFORATOR OPERATOR OIL WELL N/A Do not use PCP - General Family Medicine 06/13/20
--- OUTSIDE RECORDS SUMMARY | 2024-12-11 14:56 | XMS_ITS | Clinical Summary ---
Author Organization [facility] Address [address] [place] [address] Care Team Providers Care Search Engine Optimization Specialist Name Role Phone Bonnie Deng Primary Care Provider [phone] Allergies No known active allergies Medications No [...] (Shingrix) (1 of 2) 2039 HPV Vaccine (No Doses Required) Completed Hep A Aged Out No longer eligi ble based on patient's age to complete this topic Hib Aged Out No longer eligi ble based on patient's age to complete this topic Meningococcal ACWY Aged Out No longer eligible based on patient's age to complete this topic Pneumococcal Aged Out No longer eligi ble based on patient's age to complete this topic Insurance FFS [facility] HMO/POS Care Teams Search Engine Optimization Specialist Relationship Specialty Start Date End Date Bonnie Deng [address] [place] [id number] PCP - General 12/31/09
--- OUTSIDE RECORDS SUMMARY | 2024-12-11 14:56 | XMS_ITS | Patient Health Record ---
Author Organization [facility] Address [address] [place] [address] Care Team Providers Care Women'S Studies Lecturer Name Role Phone Bonnie Deng Primary Care Provider Debora Ferreira MD,MPH, Anthony Unavailable Reason For Referral No Information Medications Medication SIG (Take, Route, Frequency, Duration) Notes Start Date End Date Status CONTROL DIRECTED *Please review f or potential replacement for e-prescription and drug interaction check* Active clonazePAM 1 MG 1 tab(s) orally TID; Duration: 30 day(s) Active SEROquel 25 MG 1 tab(s) orally TID; Duration: 30 day(s) Active Lexapro 10 MG 1 tab(s) orally once a day; Duration: 30 day(s) Active Plan Of Treatment No Information Insurance Providers Payer Name Payer Address Payer Phone Subscriber Number Group Number Insured Name Patient Relationship to Insured Coverage Start Date Coverage End Date [place] [address] LUDIVINA Constantino [id number] Td Ordaz Child - Insured has Financial Responsibility Medical (General) History Medical History History ICD Code depression anxiety adrenal gland tumor age 10 Surgical History Surgery Date(Month/Year) Adrenal gland adenoidectomy M&T tonsillectomy
== END 2024-12-11 14:29 | disposition home or self-care (01) ==
LOC: HO.HOS 13:41
DX: S62.307A Unspecified fracture of fifth metacarpal bone, left hand, initial encounter for closed fracture (principal)
CPT/HCPCS: 99024